=== PATIENT | female | born 1965 | race Caucasian/White ===

== ENCOUNTER → 2017-01-05 | Outpatient (REF) | payer OTHER ==
[2017-01-05 13:42] LABS: PERCENT SATURATION 12.2 % (13.2-37.4)
== END ==
LOC: M LAB REF 12:31
PROVIDERS: ATTEND Internal Medicine
DX: D51.9 Vitamin B12 deficiency anemia, unspecified (principal); D50.9 Iron deficiency anemia, unspecified

== ENCOUNTER → 2018-01-11 | Outpatient (REF) | payer OTHER ==
[2018-01-12 12:56] LABS: VITAMIN B12 LEVEL 1548 PG/ML (247-911)
[2018-01-12 12:57] LABS: IRON (FE) 62 UG/DL (50-170); PERCENT SATURATION 12.1 % (13.2-45.0); TOTAL IRON BINDING CAPACITY 511 UG/DL (250-450)
== END ==
LOC: M LAB REF 12:09
DX: D50.9 Iron deficiency anemia, unspecified (principal)
CPT/HCPCS: 83550

== ENCOUNTER → 2019-01-17 | Outpatient (REF) | payer OTHER ==
[2019-01-17 14:02] LABS: PERCENT SATURATION 17.5 % (13.2-45.0)
== END ==
LOC: M LAB REF 13:10
PROVIDERS: ATTEND Internal Medicine
DX: D50.9 Iron deficiency anemia, unspecified (principal); D51.9 Vitamin B12 deficiency anemia, unspecified

== ENCOUNTER → 2020-03-19 | Outpatient (REF) | payer BC | LOC: M LAB REF 16:22 | PROVIDERS: ATTEND Internal Medicine | DX: D51.9 Vitamin B12 deficiency anemia, unspecified (principal) ==

== ENCOUNTER → 2020-05-10 | Outpatient (REF) | payer BC ==
[2020-05-10 14:01] LABS: PERCENT SATURATION 56.7 % (13.2-45.0)
== END ==
LOC: M LAB REF 08:00
PROVIDERS: ATTEND Internal Medicine
DX: D50.9 Iron deficiency anemia, unspecified (principal); D51.9 Vitamin B12 deficiency anemia, unspecified; Z98.84 Bariatric surgery status

== ENCOUNTER → 2020-05-18 | Outpatient (REF) | payer BC | LOC: M LAB REF 12:13 | PROVIDERS: ATTEND Internal Medicine | DX: E83.110 Hereditary hemochromatosis (principal) ==

== ENCOUNTER → 2020-06-06 | Outpatient (REF) | payer BC ==
[2020-06-06 18:07] LABS: BASO # 0.1 10^3/uL (0.0-0.2); BASO % 0.7 % (0.0-1.0); EOS # 0.2 10^3/uL (0.0-0.5); EOS % 1.7 % (0.0-3.0); HEMATOCRIT 42.1 % (36.0-47.0); HEMOGLOBIN 13.6 g/dl (12.0-15.5); LYMPH # 2.6 10^3/uL (1.5-5.0); LYMPH % 28.6 % (24.0-44.0); MEAN CORPUSCULAR HEMOGLOBIN 30.9 pg (27.0-33.0); MEAN CORPUSCULAR HGB CONC 32.3 g/dl (32.0-36.5); MEAN CORPUSCULAR VOLUME 95.7 fl (80.0-96.0); MONO # 0.5 10^3/uL (0.0-0.8); MONO % 5.4 % (0.0-5.0); NEUTROPHILS # 5.7 10^3/uL (1.5-8.5); NEUTROPHILS % 63.2 % (36.0-66.0); PLATELET COUNT, AUTOMATED 419 10^3/uL (150-450); WHITE BLOOD COUNT 9.1 10^3/uL (4.0-10.0)
== END ==
LOC: M LAB REF 17:16
PROVIDERS: ATTEND Internal Medicine
DX: E83.119 Hemochromatosis, unspecified (principal)

== ENCOUNTER 2020-09-25 14:58 | Emergency (ER) | payer BC ==
[~2020-09-25] VITALS: Ht 157.5 cm; Wt 68.6 kg
[2020-09-25 16:10] LABS: BASO % 0.6 % (0.0-1.0); EOS % 0.3 % (0.0-3.0); LYMPH # 0.7 10^3/uL (1.5-5.0); LYMPH % 20.8 % (24.0-44.0); MEAN CORPUSCULAR HEMOGLOBIN 29.8 pg (27.0-33.0); MEAN CORPUSCULAR HGB CONC 31.9 g/dl (32.0-36.5); MEAN CORPUSCULAR VOLUME 93.3 fl (80.0-96.0); MONO # 0.2 10^3/uL (0.0-0.8); NEUTROPHILS # 2.3 10^3/uL (1.5-8.5); PLATELET COUNT, AUTOMATED 234 10^3/uL (150-450); RED BLOOD COUNT 5.04 10^6/uL (4.00-5.40); WHITE BLOOD COUNT 3.3 10^3/uL (4.0-10.0)
[2020-09-25 16:25] LABS: INR 0.93; PROTHROMBIN TIME 12.6 SECONDS (12.5-14.3)
[2020-09-25 16:26] LABS: PARTIAL THROMBOPLASTIN TIME 31.2 SECONDS (24.2-38.5)
[2020-09-25 16:29] LABS: D-DIMER QUANT 930.46 ng/ml (<500)
[2020-09-25] MEDS ORDERED: NS 1,000 ML IV ONE (16:45)
[2020-09-25] MEDS ORDERED: ACETAMINOPHEN 325 MG TAB PO ONE (16:45)
[2020-09-25] MEDS ORDERED: ALBUTEROL 90 MCG/ACT 8GM HFA INHALER INH ONE (16:45)
[2020-09-25 16:47] LABS: HCG, SERUM QUALITATIVE NEGATIVE (NEGATIVE)
[2020-09-25 16:49] LABS: ALBUMIN 3.4 GM/DL (3.2-5.2); ALT/SGPT 23 U/L (12-78); BILIRUBIN,DIRECT 0.2 MG/DL (0.0-0.2); BILIRUBIN,TOTAL 0.5 MG/DL (0.2-1.0); C REACTIVE PROTEIN QUANTITATIV 3.27 MG/DL (0.00-0.30); CK-MB VALUE MASS < 1.0 NG/ML (<3.6); CPK CREATINE PHOSPHOKINASE 37 U/L (26-192); TROPONIN I < 0.02 NG/ML (< 0.10)
[2020-09-25] MEDS ORDERED: ISOVUE-370 76% 100ML VIAL As Ordered ONE (17:24)
--- NOTE | 2020-09-25 17:28 | REP ---
INDICATION: Coronavirus workup. COMPARISON: Comparison chest x-ray January 07, 2016. TECHNIQUE: Portable upright AP chest radiograph. FINDINGS: The lungs are well inflated and free of infiltrate. Pleural angles are sharp. Heart size is normal. Pulmonary vasculature is not increased. No bony abnormality is appreciated. IMPRESSION: No active disease.. <Electronically signed by Trevor Regalado > 09/25/20 [id number]
--- NOTE | 2020-09-25 18:17 | REPVR ---
PROCEDURE INFORMATION: Exam: CT Angiography Chest With Contrast Exam date and time: 09/25/2020 5:47 PM Age: 55 years old Clinical indication: Chest pain; Additional info: Chest pain on inhalation, dimer elevated, covid exp TECHNIQUE: Imaging protocol: Computed tomographic angiography of the chest with intravenous contrast. 3D rendering (Not supervised by radiologist): MIP and/or 3D reconstructed images were created by the technologist. Radiation optimization: All CT scans at this facility use at least one of these dose optimization techniques: automated exposure control; mA and/or kV adjustment per patient size (includes targeted exams where dose is matched to clinical indication); or iterative reconstruction. Contrast material: ISOVUE 370; Contrast volume: 75 ml; Contrast route: INTRAVENOUS (IV); COMPARISON: [facility] PORTABLE CHEST X-RAY 09/25/2020 5:14 PM FINDINGS: Pulmonary arteries: There are no pulmonary emboli. Aorta: There is no aortic dissection or aneurysm. Lungs: Focus of semi-solid and solid parenchymal opacity demonstrated along the medial aspect of the right lower lobe and more pronounced at the right lung base. Findings consistent with nonspecific pneumonitis although viral etiology seems likely. Pleural space: Unremarkable. No pneumothorax. No pleural effusion. Heart: Unremarkable. No cardiomegaly. No pericardial effusion. Lymph nodes: Unremarkable. No enlarged lymph nodes. Gallbladder and bile ducts: Cholelithiasis. Stomach and bowel: Status post gastric bypass. Bones/joints: Unremarkable. No acute fracture. Soft tissues: Unremarkable. IMPRESSION: 1. Focus of semi-solid and solid parenchymal opacity demonstrated along the medial aspect of the right lower lobe and more pronounced at the right lung base. Findings consistent with nonspecific pneumonitis although viral etiology seems likely. 2. There is no aortic dissection or aneurysm. 3. There are no pulmonary emboli. Electronically signed by: Toro Sanford On 09/25/2020 18:17:13 PM
[2020-09-25 20:21] VITALS: BP 131/69
--- NOTE | 2020-09-26 05:53 | ECGEPIP ---
[facility] - ED Test Date: 2020-09-25 Pat Name: MIKE FOFANA Department: Room: - Gender: Female [employer]: DOMONIQUE : 1965 Requested By: LEONARDO Morocho PA-C Order Number: [id number] Reading MD: Jersey Ramachandran Measurements Intervals [place] Rate: 82 P: 64 AR: 142 QRS: 55 QRSD: 94 T: 52 QT: 354 QTc: 416 Interpretive Statements SINUS RHYTHM POOR R WAVE PROGRESSION INDETERMINATE AXIS NO PRIORS FOR COMPARISON Electronically Signed on 09-26-2020 5:53:07 EST by Jersey Ramachandran
== END 2020-09-25 20:25 | disposition home or self-care (01) ==
LOC: M ED 14:58
DX: R07.89 Other chest pain (principal); R05 Cough; R06.02 Shortness of breath; M79.10 Myalgia, unspecified site
CPT/HCPCS: 71045; 71275; 80047; 80076; 82550; 82553; 83605; 84703; 85025; 85379; 85610; 85730; 86140; 93005; 94640; 96360; 99284; Q9967; U0003

== ENCOUNTER → 2021-12-10 | Outpatient (CLI) | payer BC ==
[2021-12-10 15:26] LABS: BASO % 0.4 % (0.0-1.0); EOS # 0.1 10^3/uL (0.0-0.5); EOS % 0.9 % (0.0-3.0); HEMATOCRIT 41.8 % (36.0-47.0); HEMOGLOBIN 14.1 g/dl (12.0-15.5); LYMPH # 1.5 10^3/uL (1.5-5.0); LYMPH % 17.6 % (24.0-44.0); MEAN CORPUSCULAR HEMOGLOBIN 31.6 pg (27.0-33.0); MEAN CORPUSCULAR HGB CONC 33.7 g/dl (32.0-36.5); MEAN CORPUSCULAR VOLUME 93.7 fl (80.0-96.0); MONO # 0.5 10^3/uL (0.0-0.8); MONO % 5.6 % (2.0-8.0); NEUTROPHILS # 6.4 10^3/uL (1.5-8.5); NEUTROPHILS % 75.1 % (36.0-66.0); PLATELET COUNT, AUTOMATED 396 10^3/uL (150-450); RED BLOOD COUNT 4.46 10^6/uL (4.00-5.40); WHITE BLOOD COUNT 8.5 10^3/uL (4.0-10.0)
[2021-12-10 15:47] LABS: C REACTIVE PROTEIN QUANTITATIV 2.05 MG/DL (0.00-0.30); RHEUMATOID FACTOR QUANT < 10.0 IU/ML (<15.0); URIC ACID 3.9 MG/DL (2.6-6.0)
[2021-12-10 16:04] LABS: ERYTHROCYTE SEDIMENTATION RATE 31 mm/hr (0-30)
== END ==
LOC: M PLALAB 12:30
PROVIDERS: ATTEND Physician Assistant
DX: M25.531 Pain in right wrist (principal)